=== PATIENT | female | born 1955 ===

== ENCOUNTER 2019-01-28 21:44 | Inpatient (IN) | payer OTHER ==
[2019-01-28 22:03] VITALS: BMI 23.1
[2019-01-28 22:32] LABS: HEMOGLOBIN 10.7 g/dL (12.0-16.0); MEAN CELL VOLUME 90.5 fl (80.0-105.0); MEAN PLATELET VOLUME 10.7 fl (7.0-11.0); RBC 3.69 10^6/uL (3.5-6.1); RED CELL DISTRIBUTION WIDTH 13.8 % (11.5-14.5)
[2019-01-28] MEDS: Sodium Chloride 0.9% 1,000 ML IV SCH (22:40)
[2019-01-28 22:41] LABS: INR 1.25; PARTIAL THROMBOPLASTIN TIME 25.3 Seconds (26.9-38.3); PROTHROMBIN TIME 13.9 SECONDS (9.4-12.5)
[2019-01-28 22:42] LABS: ALB/GLOB RATIO 1.9 (1.1-1.8); ALBUMIN 3.8 g/dL (3.0-4.8); ALT/SGPT 33 U/L (7-56); AST/SGOT 42 U/L (14-36); BLOOD UREA NITROGEN 14 mg/dL (7-21); CALCIUM 8.6 mg/dL (8.4-10.5); GFR NON-AFRICAN AMERICAN > 60
[2019-01-28 22:53] LABS: TROPONIN I < 0.01 ng/mL
--- NOTE | 2019-01-28 23:17 | ED PDOC ---
Arrival/HPI - General Chief Complaint: Weakness/Neurological Deficit Time Seen by Provider: 01/28/19 21:45 Historian: Patient - Critical Care Critical Care Minutes: 60 minutes - History of Present Illness Narrative History of Present Illness (Text): 01/28/19 23:08 63 year old female, whose past medical history includes polycythemia vera, following syncopal episode at home. Patient states tonight on different occasions she began feeling lightheaded and dizzy. Patient states symptoms culminated with her passing out onto her bed. Patient informs earlier today she had undergone bilateral oophorectomy. Patient denies any headache, chest pain, shortness of breath, no worsening abdominal pain other than soreness following surgery. Patient denies any fevers, chills, headache, chest pain, shortness of breath, diaphoresis, nausea, vomiting, diarrhea, back pain, neck pain, or any other complaint. Time/Duration: Prior to Arrival Symptom Onset: Gradual Symptom Course: Unchanged Activities at Onset: Light Context: Home Past Medical History - Provider Review Nursing Documentation Reviewed: Yes - Reproductive Menopause: Yes - Hematological/Oncological Hx Blood Disorders: Yes Other/Comment: Polycythemia vera - Genitourinary/Gynecological Hx Genitourinary Disorders: Yes Other/Comment: Right ovarian tumor. - Psychiatric Hx Substance Use: No - Surgical History Other/Comment: removal of R ovarian tumor 01/28/19 Family/Social History - Physician Review Nursing Documentation Reviewed: Yes Family/Social History: No Known Family HX Smoking Status: Never Smoked Hx Alcohol Use: No Hx Substance Use: No Allergies/Home Meds Allergies/Adverse Reactions: Allergies No Known Allergies Allergy (Verified 01/28/19 22:03) Review of Systems - Physician Review All systems were reviewed & negative as marked: Yes - Review of Systems Constitutional: absent: Fevers, Night Sweats Respiratory: absent: SOB, Cough Cardiovascular: Syncope. absent: Chest Pain Gastrointestinal: absent: Abdominal Pain (None other than from surgical site), Diarrhea, Nausea, Vomiting Musculoskeletal: absent: Back Pain, Neck Pain Neurological: Dizziness. absent: Headache Endocrine: absent: Diaphoresis Physical Exam Vital Signs Reviewed: Yes Vital Signs Temp Pulse Resp BP Pulse Ox 01/28/19 22:03 98.8 F 77 18 121/55 L 98 Temperature: Afebrile Blood Pressure: Normal Pulse: Bradycardic Respiratory Rate: Normal Appearance: Positive for: Well-Appearing, Non-Toxic, Comfortable Pain Distress: None Mental Status: Positive for: Alert and Oriented X 3 Finger Stick Blood Glucose: 249 - Systems Exam Head: Present: Atraumatic, Normocephalic Pupils: Present: PERRL Extroacular Muscles: Present: EOMI Conjunctiva: Present: Normal Mouth: Present: Moist Mucous Membranes Neck: Present: Normal Range of Motion Respiratory/Chest: Present: Clear to Auscultation, Good Air Exchange. No: Respiratory Distress, Accessory Muscle Use Cardiovascular: Present: Regular Rate and Rhythm, Normal S1, S2. No: Murmurs Abdomen: Present: Tenderness (Minimal tenderness to mid abdomen at suture site, no erythema ), Normal Bowel Sounds. No: Distention, Peritoneal Signs Back: Present: Normal Inspection Upper Extremity: Present: Normal Inspection. No: Cyanosis, Edema Lower Extremity: Present: Normal Inspection. No: Edema Neurological: Present: GCS=15, CN II-XII Intact, Speech Normal, Motor Func Grossly Intact, Normal Sensory Function Skin: Present: Warm, Dry, Normal Color. No: Rashes Psychiatric: Present: Alert, Oriented x 3, Normal Insight, Normal Concentration Medical Decision Making ED Course and Treatment: 01/28/19 23:21 Impression: 63 year old female presents for evaluation s/p syncopal episode. Plan: -- CT Head -- EKG -- Chest X-ray -- Reassess and disposition Prior Visits: Notes and results from previous visits were reviewed. Progress Notes: 01/28/19 23:40 Patient has had an episode of hypotension following her attempt to get up from stretcher to go to the bathroom. Patient became weak and was placed back onto the stretcher to lay down. Pressure resumed to normal after returning to stretcher. 01/29/19 03:41 Case was discussed with assistant vice president who saw and evaluated patient. No evidence of peritoneal abdomen, CT scan is noted. Case was discussed with PMD Dr Daryl Barr who agrees patient should be admitted to intensive care unit for close monitoring and serial CBC. surgeon on consult. Case was discussed with field radio technician Dr. Verma who agrees with patient admission to intensive care unit. He will evaluate patient along with medical doctor nuclear medicine. Of note, patient's vital signs have remained stable to this point. - Lab Interpretations Lab Results: PT 13.9 SECONDS (9.4-12.5) H 01/28/19 22:20 INR 1.25 01/28/19 22:20 APTT 25.3 Seconds (26.9-38.3) L 01/28/19 22:20 Troponin I < 0.01 ng/mL 01/28/19 22:20 Total Bilirubin 0.6 mg/dL (0.2-1.3) 01/28/19 22:20 AST 42 U/L (14-36) H 01/28/19 22:20 ALT 33 U/L (7-56) 01/28/19 22:20 Alkaline Phosphatase 37 U/L (38-126) L 01/28/19 22:20 Total Protein 5.7 g/dL (5.8-8.3) L 01/28/19 22:20 Albumin 3.8 g/dL (3.0-4.8) 01/28/19 22:20 Globulin 2.0 gm/dL 01/28/19 22:20 Albumin/Globulin Ratio 1.9 (1.1-1.8) H 01/28/19 22:20 - RAD Interpretation Radiology Orders: 01/28/19 22:24 HEAD W/O CONTRAST [CT] Stat CHEST PORTABLE [RAD] Stat - Medication Orders Current Medication Orders: Sodium Chloride (Sodium Chloride 0.9%) 1,000 mls @ 100 mls/hr IV .Q10H YURY Last Admin: 01/28/19 22:40 Dose: 100 mls/hr eMAR Start Stop Document 01/28/19 22:40 EB (Rec: 01/28/19 23:00 EB [facility] [place]-[id number]) Intravenous Solution Start Date 01/28/19 Start Time 22:40 - Scribe Statement The provider has reviewed the documentation as recorded by the [facility] Provider Scribe Attestation: All medical record entries made by the Scribe were at my direction and personally dictated by me. I have reviewed the chart and agree that the record accurately reflects my personal performance of the history, physical exam, medical decision making, and the department course for this patient. I have also personally directed, reviewed, and agree with the discharge instructions and disposition. Disposition/Present on Arrival - Present on Arrival Any Indicators Present on Arrival: No History of DVT/PE: No History of Uncontrolled Diabetes: No Urinary Catheter: No History of Decub. Ulcer: No History Surgical Site Infection Following: None - Disposition Have Diagnosis and Disposition been Completed?: Yes Diagnosis: Syncope, Anemia, Hemoperitoneum, Status post bilateral salpingo-oophorectomy Disposition: HOSPITALIZED Disposition Time: 03:33 Patient Problems: Current Active Problems Problem Status Onset Anemia Acute Hemoperitoneum Acute Status post bilateral salpingo-oophorectomy Acute Syncope Acute Condition: GUARDED
[2019-01-29] MEDS ORDERED: Iohexol 350 MG/100 ML VIAL ONE (00:45)
--- NOTE | 2019-01-29 03:19 | CP.PCM.CON ---
History of Present Illness - History of Present Illness History of Present Illness: General surgery consult note for Dr. Brandy Davis, PGY-2 Pt seen/examined at bedside in ED 2 63F w/PMH sig for Polycythemia vera and POD#1 s/p B/L salpingoopherectomy with hemoperitoneum and symptomatic anemia consulted for hemoperitoneum. Pt reports syncopal episode after same day surgery after trying to get up to use the b athroom and almost syncopal episode while attempting to walk up the stairs to get inside her house after surgery. Also admits to weakness, dizziness, fatigue, sweating, nausea, abdominal discomfort at incision sites and RUQ. Denies emesis, CP, ever having prior episodes of similar, SOB, emesis, fevers, chills, CASTELLANOS, vision changes, back pain, other complaints. Hgb 10.7 in setting of polycythemia vera. INR 1.25. No tachycardia, some hypotension. 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 Tyson outpt heme: Dr. Galvan Review of Systems - Review of Systems All systems: reviewed and no additional remarkable complaints except - Constitutional Constitutional: Excessive Sweating (when attempting to get up), Weakness. absent: Chills, Fever, Headache - EENT Ears: Dizziness Nose/Mouth/Throat: absent: Sore Throat - Cardiovascular Cardiovascular: absent: Chest Pain - Respiratory Respiratory: absent: Cough - Gastrointestinal Gastrointestinal: Nausea. absent: Constipation, Diarrhea, Hematemesis, Hematochezia, Melena, Vomiting - Genitourinary Genitourinary: absent: Change in Urinary Stream, Hematuria - Reproductive: Female Reproductive:Female: S/P Hysterectomy (partial). absent: Abnormal Vaginal Bleeding - Musculoskeletal Musculoskeletal: absent: Back Pain, Numbness, Tingling - Integumentary Integumentary: Skin Pain (at surgical sites) - Neurological Neurological: Dizziness, Weakness Past Patient History - Past Social History Smoking Status: Never Smoked Chewing Tobacco Use: No Cigar Use: No Alcohol: None Drugs: Denies - HEMATOLOGICAL/ONCOLOGICAL Hx Blood Disorders: Yes (Polycythemia vera on medication) Other/Comment: Polycythemia vera - GENITOURINARY/GYNECOLOGICAL Hx Genitourinary Disorders: Yes Hx Ovarian Cancer: Yes (Right ovarian tumor) Other/Comment: Right ovarian tumor. - PSYCHIATRIC Hx Substance Use: No - SURGICAL HISTORY Hx Surgeries: Yes (Laparoscopic bilateral salpinoopherectomy) Other/Comment: removal of R ovarian tumor 01/28/19 - ANESTHESIA Hx Anesthesia: Yes Hx Anesthesia Reactions: No Hx Malignant Hyperthermia: No Meds Allergies/Adverse Reactions: Allergies Allergy/AdvReac Type Severity Reaction Status Date / Time No Known Allergies Allergy Verified 01/28/19 22:03 - Medications Medications: Current Medications Sodium Chloride (Sodium Chloride 0.9%) 1,000 mls @ 100 mls/hr IV .Q10H YURY Last Admin: 01/28/19 22:40 Dose: 100 mls/hr Physical Exam - Constitutional Appears: Non-toxic, No Acute Distress - Head Exam Head Exam: ATRAUMATIC, NORMAL INSPECTION, NORMOCEPHALIC - Eye Exam Eye Exam: EOMI, Normal appearance - ENT Exam ENT Exam: Mucous Membranes Moist, Normal Exam - Neck Exam Neck exam: Positive for: Full Rom, Normal Inspection - Respiratory Exam Respiratory Exam: Clear to Auscultation Bilateral, NORMAL BREATHING PATTERN. absent: Chest Wall Tenderness, Rales, Rhonchi, Wheezes, Respiratory Distress - Cardiovascular Exam Cardiovascular Exam: REGULAR RHYTHM, +S1, +S2 - GI/Abdominal Exam GI & Abdominal Exam: Soft, Tenderness (over surgical sites- RLQ, LLQ and periumbilical incisions as well as RUQ ). absent: Distended, Firm, Guarding, Hernia, Rebound, Rigid Additional comments: No obvious ecchymoses on back, some ecchymoses at incision sites, tender to palpation over incision sites - Rectal Exam Rectal Exam: Deferred - Extremities Exam Extremities exam: Positive for: normal inspection - Neurological Exam Neurological exam: Alert, CN II-XII Intact, Oriented x3 - Psychiatric Exam Psychiatric exam: Normal Affect, Normal Mood - Skin Skin Exam: Dry, Intact, Normal Color, Warm Additional comments: Surgical sites with steri strips in place- no bleeding noted Results - Vital Signs Recent Vital Signs: Last Vital Signs Temp 98.1 F 01/29/19 03:13 Pulse 86 01/29/19 03:13 Resp 13 01/29/19 03:13 BP 110/63 01/29/19 03:13 Pulse Ox 99 01/29/19 03:13 - Labs Result Diagrams: 01/28/19 22:20 01/28/19 22:20 Labs: Laboratory Results - last 24 hr 01/28/19 01/28/19 01/28/19 22:20 22:20 22:20 WBC 14.0 H RBC 3.69 Hgb 10.7 L Hct 33.4 L MCV 90.5 MCH 29.0 MCHC 32.0 RDW 13.8 Plt Count 371 MPV 10.7 PT 13.9 H INR 1.25 APTT 25.3 L Sodium 135 Potassium 4.3 Chloride 100 Carbon Dioxide 25 Anion Gap 15 BUN 14 Creatinine 0.7 Est GFR ( Amer) > 60 Est GFR (Non-Af Amer) > 60 POC Glucose (mg/dL) Random Glucose 267 H Calcium 8.6 Total Bilirubin 0.6 AST 42 H ALT 33 Alkaline Phosphatase 37 L Lactate Dehydrogenase 355 Total Creatine Kinase 93 Troponin I < 0.01 Total Protein 5.7 L Albumin 3.8 Globulin 2.0 Albumin/Globulin Ratio 1.9 H 01/28/19 22:36 WBC RBC Hgb Hct MCV MCH MCHC RDW Plt Count MPV PT INR APTT Sodium Potassium Chloride Carbon Dioxide Anion Gap BUN Creatinine Est GFR ( Amer) Est GFR (Non-Af Amer) POC Glucose (mg/dL) 249 H Random Glucose Calcium Total Bilirubin AST ALT Alkaline Phosphatase Lactate Dehydrogenase Total Creatine Kinase Troponin I Total Protein Albumin Globulin Albumin/Globulin Ratio Assessment & Plan - Assessment and Plan (Free Text) Assessment: 63F w/symptomatic acute anemia s/p laparoscopic B/L salpingoopherectomy with hemoperitoneum Plan: Monitor for bleeding Serial H/H Q4-6H transfuse blood PRN recommend CT angio if suspicion of continued bleeding If continued bleeding, recommmend IR consult Recommend ambulation with assistance only FU heme recs Further care as per primary team Will DW Dr. Layo Davis, PGY-2 - Date & Time Date: 01/29/19 Time: 03:16
[2019-01-29 03:38] LABS: MEAN CORPUSCULAR HGB CONC 32.6 g/dl (31.0-37.0); MEAN PLATELET VOLUME 10.6 fl (7.0-11.0); RBC 3.45 10^6/uL (3.5-6.1); WHITE BLOOD COUNT 12.4 10^3/uL (4.5-11.0)
--- NOTE | 2019-01-29 04:05 | CP.PCM.CON ---
<Case Carmen - Last Filed: 01/29/19 05:06> History of Present Illness - History of Present Illness History of Present Illness: PGY-1 ICU Consult note for Dr. Verma CC: Syncope, anemia s/p surgery HPI: Patient is a 63 year old female with a past medical history of polycythemia vera, right benign ovarion umor, uterine fibroids, presenting with syncope. is at bedside. Patient states that she had a bilateral salpingoopherectomy yesterday in the afternoon and was discharged home from same-day surgery in [place]. Patient got home and had one episode of pre- syncope while attempting to climb the stairs to her home. She states that afterwards she had dinner at home and her was helping her to go to the bathroom when she passed out. Her states that she lost consciousness and fell to her bed. Patient's called the ambulance afterwards. He states that the patient did not hit her head or any other parts of the body when she fell into her bed. She is complaining of abdominal pain around her surgical sites. She otherwise denies fevers, chills, headaches, shortness of breath, chest pain, nausea, vomiting, diarrhea, vaginal bleeding, or urinary symptoms. 12-point ROS reviewed and negative except mentioned in HPI. PMHx: Polycythemia vera (on Jakavi), Right benign ovarian tumor, uterine fibroid s/o partial hysterectomy 18 years ago. PSH: Laparoscopic B/L salpinoopherectomy (only partial removal of ovary on the left, complete on the right), partial hysterectomy (18 years ago) Allergies: NKDA Social Hx: 15 pack years smoking history, quit 4 years ago. Denies alcohol and drug use. Works at [employer]. Family Hx: Father had stomach cancer. Medication: Jakavi 10mg PMD: Dr. Mike Barr OBGYN: Dr. Tyson Heme-Onc: Dr. Galvan Pharmacy: [facility] in [facility] Past Patient History - Past Social History Smoking Status: Never Smoked - HEMATOLOGICAL/ONCOLOGICAL Hx Blood Disorders: Yes Other/Comment: Polycythemia vera - GENITOURINARY/GYNECOLOGICAL Hx Genitourinary Disorders: Yes Other/Comment: Right ovarian tumor. - PSYCHIATRIC Hx Substance Use: No - SURGICAL HISTORY Other/Comment: removal of R ovarian tumor 04/25/19 - ANESTHESIA Hx Anesthesia: Yes Hx Anesthesia Reactions: No Hx Malignant Hyperthermia: No Meds Allergies/Adverse Reactions: Allergies Allergy/AdvReac Type Severity Reaction Status Date / Time No Known Allergies Allergy Verified 01/28/19 22:03 - Medications Medications: Current Medications Sodium Chloride (Sodium Chloride 0.9%) 1,000 mls @ 100 mls/hr IV .Q10H YURY Last Admin: 01/28/19 22:40 Dose: 100 mls/hr Physical Exam - Constitutional Appears: Well, Non-toxic, No Acute Distress - Head Exam Head Exam: ATRAUMATIC, NORMAL INSPECTION - Eye Exam Eye Exam: EOMI, Normal appearance Pupil Exam: NORMAL ACCOMODATION - ENT Exam ENT Exam: Mucous Membranes Moist - Respiratory Exam Respiratory Exam: Clear to Auscultation Bilateral, NORMAL BREATHING PATTERN. absent: Rales, Rhonchi, Wheezes, Respiratory Distress - Cardiovascular Exam Cardiovascular Exam: REGULAR RHYTHM, +S1, +S2. absent: Bradycardia, Tachycardia, Gallop, Rubs, Systolic Murmur - GI/Abdominal Exam GI & Abdominal Exam: Normal Bowel Sounds, Soft, Tenderness (Tender to palpation around surgical scars). absent: Distended, Firm, Guarding, Rigid - Extremities Exam Extremities exam: Positive for: normal inspection. Negative for: calf tenderness, pedal edema - Back Exam Back exam: NORMAL INSPECTION - Neurological Exam Neurological exam: Alert, CN II-XII Intact, Oriented x3 - Psychiatric Exam Psychiatric exam: Normal Affect, Normal Mood - Skin Skin Exam: Dry, Intact, Pallor, Warm Results - Vital Signs Recent Vital Signs: Last Vital Signs Temp 98.1 F 01/29/19 03:13 Pulse 86 01/29/19 03:13 Resp 13 01/29/19 03:13 BP 110/63 01/29/19 03:13 Pulse Ox 99 01/29/19 03:13 - Labs Result Diagrams: 01/29/19 03:13 01/28/19 22:20 Labs: Laboratory Results - last 24 hr 01/28/19 01/28/19 01/28/19 22:20 22:20 22:20 WBC 14.0 H RBC 3.69 Hgb 10.7 L Hct 33.4 L MCV 90.5 MCH 29.0 MCHC 32.0 RDW 13.8 Plt Count 371 MPV 10.7 PT 13.9 H INR 1.25 APTT 25.3 L Sodium 135 Potassium 4.3 Chloride 100 Carbon Dioxide 25 Anion Gap 15 BUN 14 Creatinine 0.7 Est GFR ( Amer) > 60 Est GFR (Non-Af Amer) > 60 POC Glucose (mg/dL) Random Glucose 267 H Calcium 8.6 Total Bilirubin 0.6 AST 42 H ALT 33 Alkaline Phosphatase 37 L Lactate Dehydrogenase 355 Total Creatine Kinase 93 Troponin I < 0.01 Total Protein 5.7 L Albumin 3.8 Globulin 2.0 Albumin/Globulin Ratio 1.9 H BBK History Checked 01/28/19 01/29/19 01/29/19 22:36 03:13 03:22 WBC 12.4 H RBC 3.45 L Hgb 10.0 L Hct 30.7 L MCV 89.0 MCH 29.0 MCHC 32.6 RDW 14.0 Plt Count 358 MPV 10.6 PT INR APTT Sodium Potassium Chloride Carbon Dioxide Anion Gap BUN Creatinine Est GFR ( Amer) Est GFR (Non-Af Amer) POC Glucose (mg/dL) 249 H Random Glucose Calcium Total Bilirubin AST ALT Alkaline Phosphatase Lactate Dehydrogenase Total Creatine Kinase Troponin I Total Protein Albumin Globulin Albumin/Globulin Ratio BBK History Checked No verified bt Assessment & Plan - Assessment and Plan (Free Text) Assessment: Patient is a 63 year old female with a past medical history of polycythemia vera, right benign ovarion umor, uterine fibroids, presenting with syncope. Patient is s/p bilateral salpinoopherectomy POD #1. Patient was found to have a Hb of 10.7 in setting of polycythemia vera. Patient will be admitted to ICU for monitoring of possible acute bleeding. Plan: Neuro: - Patient AAO X3 Pulmonary: - Maintain O2 >92% Cardiology: - Patient was hypotensive in the ED - Continue to monitor - Vital signs Q2H - NS @ 100 mL/hr GI: - CT/Abd: pending - Surgery consulted, Dr. Vasques - No emergent surgical intervention at this time - Keep patient NPO - Zofran PRN - Abdominal checks Q2H Nephro: - No acute issues Hematology - Patient has history of polycythemia vera, unsure of baseline H&H - Hgb/Hct: 10.7/33.4 --> 10.0/30.7 - Monitor H&H Q6H - Type and screen - Transfuse as needed Prophylaxis: - DVT: SCD's - GI: Protonix 40mg PO QD Case discussed with attending, Dr. Verma. Case Carmen, PGY-1 <Marilu Verma - Last Filed: 01/29/19 06:17> Meds - Medications Medications: Current Medications Acetaminophen (Tylenol 325mg Tab) 650 mg PO Q6H PRN PRN Reason: Pain, Mild (1-3) Sodium Chloride (Sodium Chloride 0.9%) 1,000 mls @ 100 mls/hr IV .Q10H YURY Last Admin: 01/28/19 22:40 Dose: 100 mls/hr Ondansetron HCl (Zofran Inj) 4 mg IVP Q4H PRN PRN Reason: Nausea/Vomiting Pantoprazole Sodium (Protonix Inj) 40 mg IVP DAILY YURY Results - Vital Signs Recent Vital Signs: Last Vital Signs Temp 98.1 F 01/29/19 06:09 Pulse 86 01/29/19 06:09 Resp 13 01/29/19 06:09 BP 110/63 01/29/19 06:09 Pulse Ox 99 01/29/19 06:09 - Labs Result Diagrams: 01/29/19 03:13 01/28/19 22:20 Labs: Laboratory Results - last 24 hr 01/28/19 01/28/19 01/28/19 22:20 22:20 22:20 WBC 14.0 H RBC 3.69 Hgb 10.7 L Hct 33.4 L MCV 90.5 MCH 29.0 MCHC 32.0 RDW 13.8 Plt Count 371 MPV 10.7 PT 13.9 H INR 1.25 APTT 25.3 L Sodium 135 Potassium 4.3 Chloride 100 Carbon Dioxide 25 Anion Gap 15 BUN 14 Creatinine 0.7 Est GFR ( Amer) > 60 Est GFR (Non-Af Amer) > 60 POC Glucose (mg/dL) Random Glucose 267 H Calcium 8.6 Total Bilirubin 0.6 AST 42 H ALT 33 Alkaline Phosphatase 37 L Lactate Dehydrogenase 355 Total Creatine Kinase 93 Troponin I < 0.01 Total Protein 5.7 L Albumin 3.8 Globulin 2.0 Albumin/Globulin Ratio 1.9 H Blood Type Blood Type Confirm Antibody Screen BBK History Checked 01/28/19 01/29/1919 22:36 03:13 03:22 WBC 12.4 H RBC 3.45 L Hgb 10.0 L Hct 30.7 L MCV 89.0 MCH 29.0 MCHC 32.6 RDW 14.0 Plt Count 358 MPV 10.6 PT INR APTT Sodium Potassium Chloride Carbon Dioxide Anion Gap BUN Creatinine Est GFR ( Amer) Est GFR (Non-Af Amer) POC Glucose (mg/dL) 249 H Random Glucose Calcium Total Bilirubin AST ALT Alkaline Phosphatase Lactate Dehydrogenase Total Creatine Kinase Troponin I Total Protein Albumin Globulin Albumin/Globulin Ratio Blood Type A POSITIVE Blood Type Confirm Antibody Screen Negative BBK History Checked No verified bt 01/29/19 04:30 WBC RBC Hgb Hct MCV MCH MCHC RDW Plt Count MPV PT INR APTT Sodium Potassium Chloride Carbon Dioxide Anion Gap BUN Creatinine Est GFR ( Amer) Est GFR (Non-Af Amer) POC Glucose (mg/dL) Random Glucose Calcium Total Bilirubin AST ALT Alkaline Phosphatase Lactate Dehydrogenase Total Creatine Kinase Troponin I Total Protein Albumin Globulin Albumin/Globulin Ratio Blood Type Blood Type Confirm A POSITIVE Antibody Screen BBK History Checked Attending/Attestation - Attestation I have personally seen and examined this patient.: Yes I have fully participated in the care of the patient.: Yes I have reviewed all pertinent clinical information: Yes Notes (Text): 01/29/19 06:16 Patient was seen when she was in 2 in the ER. Medical record was reviewed. Agree with history, physical examination, assessment and plan.
[2019-01-29] MEDS ORDERED: Pantoprazole 40 mg EC Tab PO SCH (06:00)
--- NOTE | 2019-01-29 07:31 | CP.CCUPN ---
<Vic Hanson - Last Filed: 01/29/19 13:41> CCU Subjective - Physician Review Events Since Last Encounter (Free Text): 01/29/19 07:24 pt brought to ICU for syncope and Hgb of 10.7 Subjective (Free Text): 01/29/19 07:32 pt seen and examined, states she experienced 2 episodes of LOC [employer], denies chest pain, SOB, nausea of vomiting CCU Objective - Vital Signs / Intake & Output Vital Signs (Last 4 hours): Vital Signs Temp Pulse Resp BP Pulse Ox 01/29/19 06:17 22 01/29/19 06:09 98.1 F 86 13 110/63 99 Intake and Output (Last 8hrs): Intake & Output 01/28/19 01/29/19 01/29/19 22:59 06:59 14:59 Weight 135 lb Other: Voiding Method Bedpan - Physical Exam Head: Positive for: Atraumatic, Normocephalic Pupils: Positive for: PERRL Extroacular Muscles: Positive for: EOMI Conjunctiva: Positive for: Normal Mouth: Positive for: Moist Mucous Membranes Neck: Positive for: Normal Range of Motion Respiratory/Chest: Positive for: Clear to Auscultation, Good Air Exchange. Negative for: Respiratory Distress, Accessory Muscle Use Cardiovascular: Positive for: Regular Rate and Rhythm, Normal S1, S2. Negative for: Murmurs Abdomen: Positive for: Tenderness (Minimal tenderness to mid abdomen at suture site, no erythema ), Normal Bowel Sounds, Other (surgical sites show no signs of infecton, bandage clean dry and intact). Negative for: Distention, Peritoneal Signs, Rebound, Guarding Back: Positive for: Normal Inspection Upper Extremity: Positive for: Normal Inspection. Negative for: Cyanosis, Edema Lower Extremity: Positive for: Normal Inspection. Negative for: Edema Neurological: Positive for: GCS=15, CN II-XII Intact, Speech Normal, Motor Func Grossly Intact, Normal Sensory Function Skin: Positive for: Warm, Dry, Normal Color. Negative for: Rashes Psychiatric: Positive for: Alert, Oriented x 3, Normal Insight, Normal Concentration - Medications Active Medications: Active Medications Generic Name Dose Route Start Last Admin Trade Name Freq PRN Reason Stop Dose Admin Acetaminophen 650 mg 01/29/19 04:44 01/29/19 06:19 Tylenol 325mg Tab PO 650 mg Q6H PRN Administration Pain, Mild (1-3) Sodium Chloride 1,000 mls @ 100 mls/hr 01/28/19 22:30 01/28/19 22:40 Sodium Chloride 0.9% IV 100 mls/hr .Q10H YURY Administration Ondansetron HCl 4 mg 01/29/19 04:45 Zofran Inj IVP Q4H PRN Nausea/Vomiting Pantoprazole Sodium 40 mg 01/29/19 10:00 Protonix Inj IVP DAILY YURY - Patient Studies Lab Studies: Lab Studies 01/29/19 01/29/19 01/29/19 Range/Units 04:30 03:22 03:13 WBC 12.4 H (4.5-11.0) 10^3/uL RBC 3.45 L (3.5-6.1) 10^6/uL Hgb 10.0 L (12.0-16.0) g/dL Hct 30.7 L (36.0-48.0) % MCV 89.0 (80.0-105.0) fl MCH 29.0 (25.0-35.0) pg MCHC 32.6 (31.0-37.0) g/dl RDW 14.0 (11.5-14.5) % Plt Count 358 (120.0-450.0) 10^3/uL MPV 10.6 (7.0-11.0) fl PT (9.4-12.5) SECONDS INR APTT (26.9-38.3) Seconds Sodium (132-148) mmol/L Potassium (3.6-5.0) mmol/L Chloride (98-107) mmol/L Carbon Dioxide (21-33) mmol/L Anion Gap (10-20) BUN (7-21) mg/dL Creatinine (0.7-1.2) mg/dl Est GFR ( Amer) Est GFR (Non-Af Amer) POC Glucose (mg/dL) (65-110) mg/dL Random Glucose (70-110) mg/dL Calcium (8.4-10.5) mg/dL Total Bilirubin (0.2-1.3) mg/dL AST (14-36) U/L ALT (7-56) U/L Alkaline Phosphatase (38-126) U/L Lactate Dehydrogenase (333-699) U/L Total Creatine Kinase (35-230) U/L Troponin I ng/mL Total Protein (5.8-8.3) g/dL Albumin (3.0-4.8) g/dL Globulin gm/dL Albumin/Globulin Ratio (1.1-1.8) Blood Type A POSITIVE Blood Type Confirm A POSITIVE Antibody Screen Negative BBK History Checked No verified bt 01/28/19 01/28/19 01/28/19 Range/Units 22:36 22:20 22:20 WBC 14.0 H (4.5-11.0) 10^3/uL RBC 3.69 (3.5-6.1) 10^6/uL Hgb 10.7 L (12.0-16.0) g/dL Hct 33.4 L (36.0-48.0) % MCV 90.5 (80.0-105.0) fl MCH 29.0 (25.0-35.0) pg MCHC 32.0 (31.0-37.0) g/dl RDW 13.8 (11.5-14.5) % Plt Count 371 (120.0-450.0) 10^3/uL MPV 10.7 (7.0-11.0) fl PT (9.4-12.5) SECONDS INR APTT (26.9-38.3) Seconds Sodium 135 (132-148) mmol/L Potassium 4.3 (3.6-5.0) mmol/L Chloride 100 (98-107) mmol/L Carbon Dioxide 25 (21-33) mmol/L Anion Gap 15 (10-20) BUN 14 (7-21) mg/dL Creatinine 0.7 (0.7-1.2) mg/dl Est GFR ( Amer) > 60 Est GFR (Non-Af Amer) > 60 POC Glucose (mg/dL) 249 H (65-110) mg/dL Random Glucose 267 H (70-110) mg/dL Calcium 8.6 (8.4-10.5) mg/dL Total Bilirubin 0.6 (0.2-1.3) mg/dL AST 42 H (14-36) U/L ALT 33 (7-56) U/L Alkaline Phosphatase 37 L (38-126) U/L Lactate Dehydrogenase 355 (333-699) U/L Total Creatine Kinase 93 (35-230) U/L Troponin I < 0.01 ng/mL Total Protein 5.7 L (5.8-8.3) g/dL Albumin 3.8 (3.0-4.8) g/dL Globulin 2.0 gm/dL Albumin/Globulin Ratio 1.9 H (1.1-1.8) Blood Type Blood Type Confirm Antibody Screen BBK History Checked 01/28/19 Range/Units 22:20 WBC (4.5-11.0) 10^3/uL RBC (3.5-6.1) 10^6/uL Hgb (12.0-16.0) g/dL Hct (36.0-48.0) % MCV (80.0-105.0) fl MCH (25.0-35.0) pg MCHC (31.0-37.0) g/dl RDW (11.5-14.5) % Plt Count (120.0-450.0) 10^3/uL MPV (7.0-11.0) fl PT 13.9 H (9.4-12.5) SECONDS INR 1.25 APTT 25.3 L (26.9-38.3) Seconds Sodium (132-148) mmol/L Potassium (3.6-5.0) mmol/L Chloride (98-107) mmol/L Carbon Dioxide (21-33) mmol/L Anion Gap (10-20) BUN (7-21) mg/dL Creatinine (0.7-1.2) mg/dl Est GFR ( Amer) Est GFR (Non-Af Amer) POC Glucose (mg/dL) (65-110) mg/dL Random Glucose (70-110) mg/dL Calcium (8.4-10.5) mg/dL Total Bilirubin (0.2-1.3) mg/dL AST (14-36) U/L ALT (7-56) U/L Alkaline Phosphatase (38-126) U/L Lactate Dehydrogenase (333-699) U/L Total Creatine Kinase (35-230) U/L Troponin I ng/mL Total Protein (5.8-8.3) g/dL Albumin (3.0-4.8) g/dL Globulin gm/dL Albumin/Globulin Ratio (1.1-1.8) Blood Type Blood Type Confirm Antibody Screen BBK History Checked Laboratory Results - last 24 hr 01/28/19 01/28/19 01/28/19 22:20 22:20 22:20 WBC 14.0 H RBC 3.69 Hgb 10.7 L Hct 33.4 L MCV 90.5 MCH 29.0 MCHC 32.0 RDW 13.8 Plt Count 371 MPV 10.7 PT 13.9 H INR 1.25 APTT 25.3 L Sodium 135 Potassium 4.3 Chloride 100 Carbon Dioxide 25 Anion Gap 15 BUN 14 Creatinine 0.7 Est GFR ( Amer) > 60 Est GFR (Non-Af Amer) > 60 POC Glucose (mg/dL) Random Glucose 267 H Calcium 8.6 Total Bilirubin 0.6 AST 42 H ALT 33 Alkaline Phosphatase 37 L Lactate Dehydrogenase 355 Total Creatine Kinase 93 Troponin I < 0.01 Total Protein 5.7 L Albumin 3.8 Globulin 2.0 Albumin/Globulin Ratio 1.9 H Blood Type Blood Type Confirm Antibody Screen BBK History Checked 01/28/19 01/29/19 01/29/19 22:36 03:13 03:22 WBC 12.4 H RBC 3.45 L Hgb 10.0 L Hct 30.7 L MCV 89.0 MCH 29.0 MCHC 32.6 RDW 14.0 Plt Count 358 MPV 10.6 PT INR APTT Sodium Potassium Chloride Carbon Dioxide Anion Gap BUN Creatinine Est GFR ( Amer) Est GFR (Non-Af Amer) POC Glucose (mg/dL) 249 H Random Glucose Calcium Total Bilirubin AST ALT Alkaline Phosphatase Lactate Dehydrogenase Total Creatine Kinase Troponin I Total Protein Albumin Globulin Albumin/Globulin Ratio Blood Type A POSITIVE Blood Type Confirm Antibody Screen Negative BBK History Checked No verified bt 01/29/19 04:30 WBC RBC Hgb Hct MCV MCH MCHC RDW Plt Count MPV PT INR APTT Sodium Potassium Chloride Carbon Dioxide Anion Gap BUN Creatinine Est GFR ( Amer) Est GFR (Non-Af Amer) POC Glucose (mg/dL) Random Glucose Calcium Total Bilirubin AST ALT Alkaline Phosphatase Lactate Dehydrogenase Total Creatine Kinase Troponin I Total Protein Albumin Globulin Albumin/Globulin Ratio Blood Type Blood Type Confirm A POSITIVE Antibody Screen BBK History Checked Fingerstick Blood Sugar Results: 249 Critical Care Progress Note - Nutrition Nutrition: Nutrition Category Date Time Status NPO Diet [DIET] Diets 01/29/19 Breakfast Ordered Assessment/Plan - Assessment and Plan (Free Text) Assessment: Pt is a 63 yo female with a PMH of polycythemia vera, right benign ovarian tumor, uterine fibroids, presenting with syncope. after a bilateral salpinoopherectomy 01/28/19. Pt was found to have a Hgb of 10.7 in setting of polycythemia vera. Patient will be admitted to ICU for monitoring of possible acute bleeding. Plan: Neuro - Patient AOx3 - Head CT negative for acute pathology Pulm - Maintain O2 >92% Cardio - Continue to monitor - NS@100 GI - Zofran PRN - CT/Abd: pending official read - No emergent surgical intervention - Surgery consulted, Dr. Vasques Nephro/ - No acute issues Heme/ Onc - polycythemia vera, unsure of baseline H&H - pt takes Jakiva as home med - Hgb: 10.7 to 10.0 - monitor H/H - type and screen, transfuse as needed ID - no signs of infection at this time Endo - maintain euglycemia Pt seen, examined, assessment and plan discussed with Dr Marylu Hanson PGY1 - Date & Time Date: 01/29/19 Time: 07:35 <Marylu Bacon - Last Filed: 01/29/19 18:48> CCU Objective - Vital Signs / Intake & Output Vital Signs (Last 4 hours): Vital Signs Temp Pulse Resp BP Pulse Ox 01/29/19 17:54 100.5 F H 01/29/19 17:50 100.5 F H 90 19 97 01/29/19 17:40 89 19 98 01/29/19 17:30 94 H 28 H 98 01/29/19 17:20 88 28 H 98 01/29/19 17:10 90 34 H 97 01/29/19 17:00 86 31 H 112/51 L 99 01/29/19 16:50 88 18 99 01/29/19 16:40 88 33 H 99 01/29/19 16:30 94 H 20 100 01/29/19 16:20 90 29 H 99 01/29/19 16:10 89 18 99 01/29/19 16:00 85 19 120/54 L 100 01/29/19 15:50 90 19 99 01/29/19 15:40 84 19 99 01/29/19 15:30 90 23 97 01/29/19 15:20 99 H 32 H 97 01/29/19 15:10 96 H 24 134/60 98 01/29/19 15:00 86 30 H 119/53 L 98 01/29/19 14:50 92 H 24 99 Intake and Output (Last 8hrs): Intake & Output 01/29/19 01/29/19 01/29/19 06:59 14:59 22:59 Intake Total 1250 Output Total 750 Balance 500 Intake: IV 1200 Left Forearm 1200 Oral 50 Output: Urine 750 Urine, Voided 750 Other: Voiding Method Bedpan # Voids Urine, Voided 2 - Medications Active Medications: Active Medications Generic Name Dose Route Start Last Admin Trade Name Freq PRN Reason Stop Dose Admin Acetaminophen 650 mg 01/29/19 04:44 01/29/19 17:54 Tylenol 325mg Tab PO 650 mg Q6H PRN Administration Pain, Mild (1-3) Sodium Chloride 1,000 mls @ 100 mls/hr 01/28/19 22:30 01/29/19 15:20 Sodium Chloride 0.9% IV 100 mls/hr .Q10H YURY Administration Ondansetron HCl 4 mg 01/29/19 04:45 Zofran Inj IVP Q4H PRN Nausea/Vomiting Pantoprazole Sodium 40 mg 01/29/19 10:00 01/29/19 10:34 Protonix Inj IVP 40 mg DAILY YURY Administration - Patient Studies Lab Studies: Lab Studies 01/29/19 01/29/19 01/29/19 Range/Units 15:00 11:40 09:25 WBC (4.5-11.0) 10^3/uL RBC (3.5-6.1) 10^6/uL Hgb 9.2 L 9.4 L (12.0-16.0) g/dL Hct 27.8 L 28.3 L (36.0-48.0) % MCV (80.0-105.0) fl MCH (25.0-35.0) pg MCHC (31.0-37.0) g/dl RDW (11.5-14.5) % Plt Count (120.0-450.0) 10^3/uL MPV (7.0-11.0) fl PT (9.4-12.5) SECONDS INR APTT (26.9-38.3) Seconds Sodium 137 (132-148) mmol/L Potassium 4.0 (3.6-5.0) mmol/L Chloride 104 (98-107) mmol/L Carbon Dioxide 27 (21-33) mmol/L Anion Gap 10 (10-20) BUN 13 (7-21) mg/dL Creatinine 0.7 (0.7-1.2) mg/dl Est GFR ( Amer) > 60 Est GFR (Non-Af Amer) > 60 POC Glucose (mg/dL) (65-110) mg/dL Random Glucose 110 (70-110) mg/dL Calcium 8.5 (8.4-10.5) mg/dL Total Bilirubin (0.2-1.3) mg/dL AST (14-36) U/L ALT (7-56) U/L Alkaline Phosphatase (38-126) U/L Lactate Dehydrogenase (333-699) U/L Total Creatine Kinase (35-230) U/L Troponin I ng/mL Total Protein (5.8-8.3) g/dL Albumin (3.0-4.8) g/dL Globulin gm/dL Albumin/Globulin Ratio (1.1-1.8) Blood Type Blood Type Confirm Antibody Screen BBK History Checked 01/29/19 01/29/19 01/29/19 Range/Units 04:30 03:22 03:13 WBC 12.4 H (4.5-11.0) 10^3/uL RBC 3.45 L (3.5-6.1) 10^6/uL Hgb 10.0 L (12.0-16.0) g/dL Hct 30.7 L (36.0-48.0) % MCV 89.0 (80.0-105.0) fl MCH 29.0 (25.0-35.0) pg MCHC 32.6 (31.0-37.0) g/dl RDW 14.0 (11.5-14.5) % Plt Count 358 (120.0-450.0) 10^3/uL MPV 10.6 (7.0-11.0) fl PT (9.4-12.5) SECONDS INR APTT (26.9-38.3) Seconds Sodium (132-148) mmol/L Potassium (3.6-5.0) mmol/L Chloride (98-107) mmol/L Carbon Dioxide (21-33) mmol/L Anion Gap (10-20) BUN (7-21) mg/dL Creatinine (0.7-1.2) mg/dl Est GFR ( Amer) Est GFR (Non-Af Amer) POC Glucose (mg/dL) (65-110) mg/dL Random Glucose (70-110) mg/dL Calcium (8.4-10.5) mg/dL Total Bilirubin (0.2-1.3) mg/dL AST (14-36) U/L ALT (7-56) U/L Alkaline Phosphatase (38-126) U/L Lactate Dehydrogenase (333-699) U/L Total Creatine Kinase (35-230) U/L Troponin I ng/mL Total Protein (5.8-8.3) g/dL Albumin (3.0-4.8) g/dL Globulin gm/dL Albumin/Globulin Ratio (1.1-1.8) Blood Type A POSITIVE Blood Type Confirm A POSITIVE Antibody Screen Negative BBK History Checked No verified bt 01/28/19 01/28/19 01/28/19 Range/Units 22:36 22:20 22:20 WBC 14.0 H (4.5-11.0) 10^3/uL RBC 3.69 (3.5-6.1) 10^6/uL Hgb 10.7 L (12.0-16.0) g/dL Hct 33.4 L (36.0-48.0) % MCV 90.5 (80.0-105.0) fl MCH 29.0 (25.0-35.0) pg MCHC 32.0 (31.0-37.0) g/dl RDW 13.8 (11.5-14.5) % Plt Count 371 (120.0-450.0) 10^3/uL MPV 10.7 (7.0-11.0) fl PT (9.4-12.5) SECONDS INR APTT (26.9-38.3) Seconds Sodium 135 (132-148) mmol/L Potassium 4.3 (3.6-5.0) mmol/L Chloride 100 (98-107) mmol/L Carbon Dioxide 25 (21-33) mmol/L Anion Gap 15 (10-20) BUN 14 (7-21) mg/dL Creatinine 0.7 (0.7-1.2) mg/dl Est GFR ( Amer) > 60 Est GFR (Non-Af Amer) > 60 POC Glucose (mg/dL) 249 H (65-110) mg/dL Random Glucose 267 H (70-110) mg/dL Calcium 8.6 (8.4-10.5) mg/dL Total Bilirubin 0.6 (0.2-1.3) mg/dL AST 42 H (14-36) U/L ALT 33 (7-56) U/L Alkaline Phosphatase 37 L (38-126) U/L Lactate Dehydrogenase 355 (333-699) U/L Total Creatine Kinase 93 (35-230) U/L Troponin I < 0.01 ng/mL Total Protein 5.7 L (5.8-8.3) g/dL Albumin 3.8 (3.0-4.8) g/dL Globulin 2.0 gm/dL Albumin/Globulin Ratio 1.9 H (1.1-1.8) Blood Type Blood Type Confirm Antibody Screen BBK History Checked 01/28/19 Range/Units 22:20 WBC (4.5-11.0) 10^3/uL RBC (3.5-6.1) 10^6/uL Hgb (12.0-16.0) g/dL Hct (36.0-48.0) % MCV (80.0-105.0) fl MCH (25.0-35.0) pg MCHC (31.0-37.0) g/dl RDW (11.5-14.5) % Plt Count (120.0-450.0) 10^3/uL MPV (7.0-11.0) fl PT 13.9 H (9.4-12.5) SECONDS INR 1.25 APTT 25.3 L (26.9-38.3) Seconds Sodium (132-148) mmol/L Potassium (3.6-5.0) mmol/L Chloride (98-107) mmol/L Carbon Dioxide (21-33) mmol/L Anion Gap (10-20) BUN (7-21) mg/dL Creatinine (0.7-1.2) mg/dl Est GFR ( Amer) Est GFR (Non-Af Amer) POC Glucose (mg/dL) (65-110) mg/dL Random Glucose (70-110) mg/dL Calcium (8.4-10.5) mg/dL Total Bilirubin (0.2-1.3) mg/dL AST (14-36) U/L ALT (7-56) U/L Alkaline Phosphatase (38-126) U/L Lactate Dehydrogenase (333-699) U/L Total Creatine Kinase (35-230) U/L Troponin I ng/mL Total Protein (5.8-8.3) g/dL Albumin (3.0-4.8) g/dL Globulin gm/dL Albumin/Globulin Ratio (1.1-1.8) Blood Type Blood Type Confirm Antibody Screen BBK History Checked Laboratory Results - last 24 hr 01/28/19 01/28/19 01/28/19 22:20 22:20 22:20 WBC 14.0 H RBC 3.69 Hgb 10.7 L Hct 33.4 L MCV 90.5 MCH 29.0 MCHC 32.0 RDW 13.8 Plt Count 371 MPV 10.7 PT 13.9 H INR 1.25 APTT 25.3 L Sodium 135 Potassium 4.3 Chloride 100 Carbon Dioxide 25 Anion Gap 15 BUN 14 Creatinine 0.7 Est GFR ( Amer) > 60 Est GFR (Non-Af Amer) > 60 POC Glucose (mg/dL) Random Glucose 267 H Calcium 8.6 Total Bilirubin 0.6 AST 42 H ALT 33 Alkaline Phosphatase 37 L Lactate Dehydrogenase 355 Total Creatine Kinase 93 Troponin I < 0.01 Total Protein 5.7 L Albumin 3.8 Globulin 2.0 Albumin/Globulin Ratio 1.9 H Blood Type Blood Type Confirm Antibody Screen BBK History Checked 01/28/19 01/29/19 01/29/19 22:36 03:13 03:22 WBC 12.4 H RBC 3.45 L Hgb 10.0 L Hct 30.7 L MCV 89.0 MCH 29.0 MCHC 32.6 RDW 14.0 Plt Count 358 MPV 10.6 PT INR APTT Sodium Potassium Chloride Carbon Dioxide Anion Gap BUN Creatinine Est GFR ( Amer) Est GFR (Non-Af Amer) POC Glucose (mg/dL) 249 H Random Glucose Calcium Total Bilirubin AST ALT Alkaline Phosphatase Lactate Dehydrogenase Total Creatine Kinase Troponin I Total Protein Albumin Globulin Albumin/Globulin Ratio Blood Type A POSITIVE Blood Type Confirm Antibody Screen Negative BBK History Checked No verified bt 01/29/19 01/29/19 01/29/19 04:30 09:25 11:40 WBC RBC Hgb 9.4 L Hct 28.3 L MCV MCH MCHC RDW Plt Count MPV PT INR APTT Sodium 137 Potassium 4.0 Chloride 104 Carbon Dioxide 27 Anion Gap 10 BUN 13 Creatinine 0.7 Est GFR ( Amer) > 60 Est GFR (Non-Af Amer) > 60 POC Glucose (mg/dL) Random Glucose 110 Calcium 8.5 Total Bilirubin AST ALT Alkaline Phosphatase Lactate Dehydrogenase Total Creatine Kinase Troponin I Total Protein Albumin Globulin Albumin/Globulin Ratio Blood Type Blood Type Confirm A POSITIVE Antibody Screen BBK History Checked 01/29/19 15:00 WBC RBC Hgb 9.2 L Hct 27.8 L MCV MCH MCHC RDW Plt Count MPV PT INR APTT Sodium Potassium Chloride Carbon Dioxide Anion Gap BUN Creatinine Est GFR ( Amer) Est GFR (Non-Af Amer) POC Glucose (mg/dL) Random Glucose Calcium Total Bilirubin AST ALT Alkaline Phosphatase Lactate Dehydrogenase Total Creatine Kinase Troponin I Total Protein Albumin Globulin Albumin/Globulin Ratio Blood Type Blood Type Confirm Antibody Screen BBK History Checked Radiology Impressions: Radiology Impressions Chest X-Ray 01/28/19 22:24 IMPRESSION: No active disease. Head CT 01/28/19 22:24 IMPRESSION: No acute intracranial pathology identified. Preliminary impression was provided by [facility] Abdomen/Pelvis CT 01/28/19 23:36 IMPRESSION: Uterus and ovaries are not identified; correlate for hysterectomy/oophorectomies. Moderate hemoperitoneum evident. Pneumoperitoneum consistent with recent postsurgical status. Bibasilar atelectasis. Hypoattenuation of the liver compatible with hepatic steatosis. Wall thickening of the sigmoid colon may reflect colitis and or exaggerated appearance due to under distension/spasm. Additional findings as above. Findings discussed with Dr. Morgan by Dr. Carter on 01/29/19 at 2:41 a.m.. Preliminary impression was provided by [facility]. Critical Care Progress Note - Nutrition Nutrition: Nutrition Category Date Time Status NPO Diet [DIET] Diets 01/29/19 Breakfast Ordered Addendum Addendum: 01/29/19 18:48 MICU Attending Addendum: Patient seen and examined with housestaff, case discussed on rounds. I agree wi th resident note above with the following additions/exceptions: 63F hx of PCV right benign ovarian tumor, uterine fibroids presenting syncope and bleeding after a bilateral salpinoopherectomy 01/28/19. Baseline HB on day of procedure was 13, on admit is 10.7 Hemodynamically stable primary surgeons (mobile tester) notified; our surgical team consulted will cont to monitor H/H, if stable will plan to transfer if drop continues to be more dramatic may need emergent surgery at this time appear to be slower bleed if not resolved Rest of care as per resident note above Marylu Bacon MD Attending Pulmonary Critical Care Sleep Medicine
--- NOTE | 2019-01-29 09:33 | RAD ---
Date of service: 01/28/2019 HISTORY: syncope COMPARISON: No prior. TECHNIQUE: 1 view obtained. FINDINGS: LUNGS: No active pulmonary disease. PLEURA: No significant pleural effusion identified, no pneumothorax apparent. CARDIOVASCULAR: Aortic calcifications Normal cardiac size. No pulmonary vascular congestion. OSSEOUS STRUCTURES: No significant abnormalities. VISUALIZED UPPER ABDOMEN: Normal. OTHER FINDINGS: None. IMPRESSION: No active disease.
[2019-01-29 09:46] LABS: HEMOGLOBIN 9.4 g/dL (12.0-16.0)
--- NOTE | 2019-01-29 09:46 | CT ---
Date of service: 01/28/2019 PROCEDURE: CT HEAD WITHOUT CONTRAST. HISTORY: syncope COMPARISON: None available. TECHNIQUE: Axial computed tomography images were obtained through the head/brain without intravenous contrast. Radiation dose: Total exam DLP = 974.38 mGy-cm. This CT exam was performed using one or more of the following dose reduction techniques: Automated exposure control, adjustment of the mA and/or kV according to patient size, and/or use of iterative reconstruction technique. FINDINGS: HEMORRHAGE: No intracranial hemorrhage. BRAIN: No mass effect or edema. The cullen-white matter differentiation appears intact. Please note that MRI with diffusion imaging is more sensitive in the detection of acute ischemic event. VENTRICLES: No hydrocephalus. CALVARIUM: Unremarkable. PARANASAL SINUSES: Unremarkable as visualized. No significant inflammatory changes. MASTOID AIR CELLS: Unremarkable as visualized. No inflammatory changes. OTHER FINDINGS: None. IMPRESSION: No acute intracranial pathology identified. Preliminary impression was provided by [facility].
--- NOTE | 2019-01-29 11:53 | CT ---
Date of service: 01/29/2019 PROCEDURE: CT Abdomen and Pelvis with contrast HISTORY: abdominal pain COMPARISON: None available. TECHNIQUE: Contrast dose: Omnipaque 350 Radiation dose: Total exam DLP = 375.97 mGy-cm. This CT exam was performed using one or more of the following dose reduction techniques: Automated exposure control, adjustment of the mA and/or kV according to patient size, and/or use of iterative reconstruction technique. FINDINGS: LOWER THORAX: Bibasilar atelectasis. No visible pleural effusion or pneumothorax. LIVER: Hypoattenuation of the liver compatible with hepatic steatosis. GALLBLADDER AND BILE DUCTS: Unremarkable. PANCREAS: Unremarkable. SPLEEN: Unremarkable. ADRENALS: Unremarkable. KIDNEYS AND URETERS: The kidneys enhance symmetrically. No hydronephrosis or obstructing calculus identified. VASCULATURE: No aortic aneurysm. Atherosclerotic calcifications of the aorta. BOWEL: Stomach is nondistended. Lack of oral contrast limits evaluation for bowel pathology. Bowel loops appear within normal limits of caliber without evidence of obstruction. APPENDIX: No findings consistent with acute appendicitis. PERITONEUM: Moderate hemoperitoneum evident. Pneumoperitoneum consistent with recent postsurgical status. LYMPH NODES: No bulky adenopathy identified. BLADDER: Unremarkable. REPRODUCTIVE: Uterus and ovaries are not identified; correlate for hysterectomy/oophorectomies. BONES: No acute osseous abnormality is detected. OTHER FINDINGS: None. IMPRESSION: Uterus and ovaries are not identified; correlate for hysterectomy/oophorectomies. Moderate hemoperitoneum evident. Pneumoperitoneum consistent with recent postsurgical status. Bibasilar atelectasis. Hypoattenuation of the liver compatible with hepatic steatosis. Wall thickening of the sigmoid colon may reflect colitis and or exaggerated appearance due to under distension/spasm. Additional findings as above. Findings discussed with Dr. Morgan by Dr. Carter on 01/29/19 at 2:41 a.m.. Preliminary impression was provided by [facility].
[2019-01-29 11:54] LABS: BLOOD UREA NITROGEN 13 mg/dL (7-21); CALCIUM 8.5 mg/dL (8.4-10.5); GFR NON-AFRICAN AMERICAN > 60
--- NOTE | 2019-01-29 15:02 | CARD ---
APPROVED REPORT Date of service: 01/28/2019 EKG Measurement Heart [id number] <Conclusion> Sinus rhythm with premature [place] complexes Otherwise normal ECG
[2019-01-29 15:17] LABS: HEMOGLOBIN 9.2 g/dL (12.0-16.0)
[2019-01-29] MEDS: Sodium Chloride 0.9% 1,000 ML IV SCH (15:20)
[2019-01-29 20:42] LABS: HEMOGLOBIN 8.3 g/dL (12.0-16.0)
[2019-01-30] MEDS: Sodium Chloride 0.9% 1,000 ML IV SCH (04:30)
[2019-01-30 08:48] LABS: ALB/GLOB RATIO 1.6 (1.1-1.8); ALBUMIN 3.4 g/dL (3.0-4.8); ALT/SGPT 35 U/L (7-56); AST/SGOT 26 U/L (14-36); BLOOD UREA NITROGEN 11 mg/dL (7-21); CALCIUM 8.5 mg/dL (8.4-10.5); GFR NON-AFRICAN AMERICAN > 60
[2019-01-30 09:19] LABS: HEMOGLOBIN 7.7 g/dL (12.0-16.0); MEAN CELL VOLUME 90.9 fl (80.0-105.0); MEAN CORPUSCULAR HEMOGLOBIN 29.3 pg (25.0-35.0); MEAN CORPUSCULAR HGB CONC 32.2 g/dl (31.0-37.0); MEAN PLATELET VOLUME 10.4 fl (7.0-11.0); RBC 2.63 10^6/uL (3.5-6.1); RED CELL DISTRIBUTION WIDTH 14.3 % (11.5-14.5); WHITE BLOOD COUNT 5.4 10^3/uL (4.5-11.0)
[2019-01-30 15:43] LABS: HEMOGLOBIN 7.8 g/dL (12.0-16.0)
--- NOTE | 2019-01-30 15:57 | CP.PCM.PN ---
Subjective - Date & Time of Evaluation Date of Evaluation: 01/30/19 Time of Evaluation: 07:00 - Subjective Subjective: GENERAL SURGERY PROGRESS NOTE FOR DR. RAMACHANDRAN Patient seen and examined at bedside. She states that her pain is better. She is ambulating to the bathroom and in the halls. She tolerated the clear liquids and is hungry for more solid food. She is requesting to go home tonight. Objective - Vital Signs/Intake and Output Vital Signs (last 24 hours): Temp Pulse Resp BP Pulse Ox 99.6 F 105 H 16 119/61 95 01/30/19 12:10 01/30/19 14:00 01/30/19 12:10 01/30/19 12:10 01/30/19 09:00 Intake and Output: 01/30/19 01/30/19 06:59 18:59 Intake Total 900 Output Total 600 Balance 300 - Medications Medications: Current Medications Acetaminophen (Tylenol 325mg Tab) 650 mg PO Q6H PRN PRN Reason: Pain, Mild (1-3) Last Admin: 01/29/19 17:54 Dose: 650 mg Ondansetron HCl (Zofran Inj) 4 mg IVP Q4H PRN PRN Reason: Nausea/Vomiting Pantoprazole Sodium (Protonix Inj) 40 mg IVP DAILY YURY Last Admin: 01/30/19 10:02 Dose: 40 mg - Labs Labs: 01/30/19 08:27 01/30/19 08:27 PT 13.9 SECONDS (9.4-12.5) H 01/28/19 22:20 INR 1.25 01/28/19 22:20 APTT 25.3 Seconds (26.9-38.3) L 01/28/19 22:20 - Constitutional Appears: Non-toxic, No Acute Distress - Head Exam Head Exam: ATRAUMATIC, NORMAL INSPECTION - Eye Exam Eye Exam: EOMI, Normal appearance - Respiratory Exam Respiratory Exam: NORMAL BREATHING PATTERN. absent: Respiratory Distress - Cardiovascular Exam Cardiovascular Exam: +S1, +S2 - GI/Abdominal Exam GI & Abdominal Exam: Soft, Tenderness (mild rosendo-incisional tenderness). absent: Distended, Firm, Guarding, Rigid, Rebound - Neurological Exam Neurological Exam: Alert, Awake - Psychiatric Exam Psychiatric exam: Normal Affect, Normal Mood - Skin Additional comments: Ecchymosis to LLQ Assessment and Plan - Assessment and Plan (Free Text) Assessment: 63F w/ anemia s/p laparoscopic B/L salpingoopherectomy with hemoperitoneum, improving Plan: - Monitor H/H - Tolerated CLD, advanced to regular diet - DC IV fluids Discussed plan with Dr. Layo Phoenix PGY-4
[2019-01-30 21:19] LABS: HEMOGLOBIN 7.8 g/dL (12.0-16.0)
[2019-01-31 00:48] VITALS: RESP 18; TEMP 98.5
[2019-01-31 05:12] VITALS: PULSE 76
[2019-01-31 06:06] VITALS: BP 104/62; O2SAT 94
[2019-01-31 07:24] LABS: HEMOGLOBIN 7.7 g/dL (12.0-16.0); MEAN CELL VOLUME 90.5 fl (80.0-105.0); MEAN CORPUSCULAR HEMOGLOBIN 29.2 pg (25.0-35.0); MEAN CORPUSCULAR HGB CONC 32.2 g/dl (31.0-37.0); MEAN PLATELET VOLUME 10.1 fl (7.0-11.0); RBC 2.64 10^6/uL (3.5-6.1); RED CELL DISTRIBUTION WIDTH 14.4 % (11.5-14.5); WHITE BLOOD COUNT 3.6 10^3/uL (4.5-11.0)
[2019-01-31 07:58] LABS: ALB/GLOB RATIO 1.5 (1.1-1.8); ALBUMIN 3.4 g/dL (3.0-4.8); ALT/SGPT 38 U/L (7-56); AST/SGOT 42 U/L (14-36); BLOOD UREA NITROGEN 10 mg/dL (7-21); CALCIUM 8.8 mg/dL (8.4-10.5); GFR NON-AFRICAN AMERICAN > 60
--- NOTE | 2019-01-31 08:32 | CP.PCM.PN ---
Subjective - Date & Time of Evaluation Date of Evaluation: 01/31/19 Time of Evaluation: 08:30 - Subjective Subjective: General surgery progress note for Dr. Brandy Davis, PGY-2 Pt seen/examined at bedside Pt reports continued abdominal discomfort- unchanged from previous. Is OOBTC and ambulating with assistance. Continues to c/o some weakness with movement. Tolerating regular diet. Denies N & V, F & C. Objective - Vital Signs/Intake and Output Vital Signs (last 24 hours): Temp Pulse Resp BP Pulse Ox 98.5 F 76 18 104/62 94 L 01/31/19 06:00 01/31/19 06:00 01/31/19 06:00 01/31/19 06:00 01/31/19 06:00 Intake and Output: 01/31/19 01/31/19 06:59 18:59 Intake Total 240 Balance 240 - Medications Medications: Current Medications Acetaminophen (Tylenol 325mg Tab) 650 mg PO Q6H PRN PRN Reason: Pain, Mild (1-3) Last Admin: 01/30/19 23:06 Dose: 650 mg Ondansetron HCl (Zofran Inj) 4 mg IVP Q4H PRN PRN Reason: Nausea/Vomiting Pantoprazole Sodium (Protonix Inj) 40 mg IVP DAILY YURY Last Admin: 01/30/19 10:02 Dose: 40 mg - Labs Labs: 01/31/19 06:40 01/31/19 06:40 PT 13.9 SECONDS (9.4-12.5) H 01/28/19 22:20 INR 1.25 01/28/19 22:20 APTT 25.3 Seconds (26.9-38.3) L 01/28/19 22:20 - Constitutional Appears: Non-toxic, No Acute Distress - Head Exam Head Exam: ATRAUMATIC, NORMAL INSPECTION, NORMOCEPHALIC - Eye Exam Eye Exam: EOMI, Normal appearance - ENT Exam ENT Exam: Mucous Membranes Moist, Normal Exam - Respiratory Exam Respiratory Exam: NORMAL BREATHING PATTERN - Cardiovascular Exam Cardiovascular Exam: REGULAR RHYTHM, +S1, +S2 - GI/Abdominal Exam GI & Abdominal Exam: Soft, Tenderness (mild, over incision sites). absent: Distended, Firm, Guarding, Rigid, Rebound - Neurological Exam Neurological Exam: Alert, Awake, CN II-XII Intact, Oriented x3 - Psychiatric Exam Psychiatric exam: Normal Affect, Normal Mood - Skin Skin Exam: Dry, Intact, Normal Color (excluding left lower abdomen - large ecchymoses over LLQ surgical incision, not expanding since yesterday's markings), Warm Assessment and Plan - Assessment and Plan (Free Text) Assessment: 63F w/anemia s/p laparoscopic b/l salpinoopherectmoy w/hemoperitoneum- stable Plan: H/H stable at 7.7 from 7.8 On regular diet OOBTC Ambulate with assistance No acute surgical intervention at this time Recommend to follow up with outpatient scallop binder (Dr. Galvan) and outpatient wet room supervisor (Dr. Tyson) upon d/c home Will DW Dr. Layo Davis, PGY-2
== END 2019-01-31 11:20 | disposition home or self-care (01) | DRG 394 ==
LOC: ED 21:44 → ERH 01-29 03:23 → CCU 01-29 06:05 → 2RSO 01-29 18:14
PROVIDERS: ADMIT Internal Medicine; ATTEND Internal Medicine
DX: K66.1 Hemoperitoneum (principal); J98.11 Atelectasis; D45 Polycythemia vera; R55 Syncope and collapse; R42 Dizziness and giddiness; K76.0 Fatty (change of) liver, not elsewhere classified; D64.9 Anemia, unspecified; Z87.891 Personal history of nicotine dependence; Z80.0 Family history of malignant neoplasm of digestive organs